=== PATIENT | male | born 1950 | race Caucasian/White ===

== ENCOUNTER → 2019-08-22 | Outpatient (CLI) | payer MEDICARE, OTHER ==
--- NOTE | 2019-08-22 14:11 | RADIOLOGY REPORT (SQ) ---
EXAM DESCRIPTION: U/S RETROPERITON (RENAL/AORTA) IMAGES COMPLETED DATE/TIME: 08/22/2019 1:53 pm REASON FOR STUDY: N18.3 CHRONIC KIDNEY DISEASE, STAGE 3 (MODERATE) N18.3 CHRONIC KIDNEY DISEASE, ST AGE 3 (MODERATE) COMPARISON: None. TECHNIQUE: Dynamic and static grayscale images acquired of the kidneys and bladder and recorded on P ACS. Additional selected color Doppler and spectral images recorded. LIMITATIONS: None. FINDINGS: RIGHT KIDNEY: The right kidney measures 10.4 x 4.7 x 4.3 cm, normal size. Normal echogeni city. Mild dilatation of the right renal pelvis. A 2.7 x 1.8 x 3.1 cm cyst in the lower pole of the kidney. Normal echogenicity. No calcifications. LEFT KIDNEY: The left kidney measures 10.2 x 4.2 x 5.2 cm, normal size. Normal echogenicity. No ruth d or suspicious masses. No hydronephrosis. No calcifications. BLADDER: The prostate gland is enlarged and measures 5.8 x 4.1 x 4.8 cm. There is not indentation o n the base of the urinary bladder by the enlarged prostate gland. OTHER FINDINGS: Incidentally, fatty liver. IMPRESSION: 1. Mild dilatation of the right renal pelvis. 2. Right renal cyst. 3. The prostate gland is enlarged. There is indentation on the base of the urinary bladder. 4. Incidentally, fatty liver. TECHNICAL DOCUMENTATION: JOB ID: [id number] 2010 [employer]- All Rights Reserved Reading location - IP/workstation name: [email or web address]
== END ==
LOC: RAD 12:09
PROVIDERS: ATTEND Internal Medicine Nephrology
DX: I12.9 Hypertensive chronic kidney disease with stage 1 through stage 4 chronic kidney disease, or unspecified chronic kidney disease (principal); N18.3 Chronic kidney disease, stage 3 (moderate); N28.1 Cyst of kidney, acquired; N40.0 Benign prostatic hyperplasia without lower urinary tract symptoms; K76.0 Fatty (change of) liver, not elsewhere classified
CPT/HCPCS: 76770

== ENCOUNTER → 2019-09-02 | Outpatient (CLI) | payer MEDICARE, OTHER ==
--- NOTE | 2019-09-02 14:48 | RADIOLOGY REPORT (SQ) ---
EXAM DESCRIPTION: CT ABDOMEN NO ORAL OR IV IMAGES COMPLETED DATE/TIME: 09/02/2019 1:22 pm REASON FOR STUDY: R93.421 ABNORMAL RADIOLOGIC FINDINGS ON DX IMAGING OF R KIDNEY R93.421 ABNORMAL R ADIOLOGIC FINDINGS ON DX IMAGING OF R KIDN COMPARISON: Ultrasound from 08/22/2019 TECHNIQUE: CT scan of the abdomen performed without intravenous contrast and without oral contrast. Images reviewed with lung, soft tissue, and bone windows. Reconstructed coronal and sagittal MPR im ages reviewed. All images stored on PACS. All CT scanners at this facility use dose modulation, iterative reconstruction, and/or weight based d osing when appropriate to reduce radiation dose to as low as reasonably achievable (ALARA). [facility]: Dose Right [facility]: CareDose [facility]: Dose Right [facility]: Teradose 4D [facility]: [employer] RADIATION DOSE: CT Rad equipment meets quality standard of care and radiation dose reduction techniq ues were employed. CTDIvol: 13.9 mGy. DLP: 430 mGy-cm. LIMITATIONS: None. FINDINGS: LOWER CHEST: Solid 5 mm nodule in the right lower lobe (image 6 of series 4). There is no cardiomegaly or pericardial effusion NONCONTRASTED LIVER, SPLEEN, ADRENALS: Evaluation is limited due to the absence of intravenous contra st. The diffuse low attenuation of hepatic parenchyma is consistent with hepatic steatosis. The spl een measures 11.4 cm in craniocaudal diameter. There is no adrenal mass. PANCREAS: No acute gross abnormality of the pancreas. GALLBLADDER: The gallbladder is surgically absent. RIGHT KIDNEY AND URETER: Evaluation is limited due to the absence of intravenous contrast there is a simple fluid attenuation cyst in the lower pole of the kidney that measures 2.5 x 2.6 cm. There is n o hydronephrosis or nephrolithiasis. LEFT KIDNEY AND URETER: Evaluation is limited due to the absence of intravenous contrast. There is n o hydronephrosis or nephrolithiasis AORTA AND RETROPERITONEUM: No aneurysm of the abdominal aorta. No retroperitoneal adenopathy, hemorr jase or mass. BOWEL AND PERITONEAL CAVITY: Hiatal hernia. APPENDIX: Excluded from the [id number]. ABDOMINAL WALL: No mass or hernia. BONES: No acute fracture. OTHER: No other finding. IMPRESSION: 1. Hepatic steatosis. 2. Solid 5 mm nodule in the right lower lobe (image 4 of series 4). If no outside imaging is availab le for comparison consider a follow-up CT in 12 months. 3. No hydronephrosis or nephrolithiasis. 4. Hiatal hernia. TECHNICAL DOCUMENTATION: JOB ID: [id number] Quality ID # [id number]: Final reports with documentation of one or more dose reduction techniques (e.g., Au tomated exposure control, adjustment of the mA and/or kV according to patient size, use of iterative reconstruction technique) 2010 [employer]- All Rights Reserved Reading location - IP/workstation name: [email or web address]
== END ==
LOC: RAD 13:04
PROVIDERS: ATTEND Internal Medicine Nephrology
DX: R93.421 Abnormal radiologic findings on diagnostic imaging of right kidney (principal); K44.9 Diaphragmatic hernia without obstruction or gangrene; R91.1 Solitary pulmonary nodule
CPT/HCPCS: 74150

== ENCOUNTER → 2019-11-02 | Outpatient (CLI) | payer MEDICARE, OTHER ==
--- NOTE | 2019-11-02 10:09 | RADIOLOGY REPORT (SQ) ---
EXAM DESCRIPTION: CT CHEST WITHOUT IMAGES COMPLETED DATE/TIME: 11/02/2019 7:59 am REASON FOR STUDY: SOLITARY PULMONARY NODULE (R91.1) R91.1 SOLITARY PULMONARY NODULE COMPARISON: None. TECHNIQUE: CT scan performed of the chest without intravenous contrast. Images reviewed with lung, soft tissue and bone windows. Reconstructed coronal and sagittal MPR images reviewed. All images st ored on PACS. All CT scanners at this facility use dose modulation, iterative reconstruction, and/or weight based d osing when appropriate to reduce radiation dose to as low as reasonably achievable (ALARA). [facility]: Dose Right [facility]: CareDose [facility]: Dose Right [facility]: Teradose 4D [facility]: [employer] RADIATION DOSE: CT Rad equipment meets quality standard of care and radiation dose reduction techniq ues were employed. CTDIvol: 15.4 mGy. DLP: 606 mGy-cm. mGy. LIMITATIONS: No technical limitations. FINDINGS: LUNGS AND PLEURA: Within the right lower lobe there is a 5 x 4 x 4 mm subpleural pulmonary nodule (axial image 82; coronal reformat 98). Calcified granulomas are seen within the superior seg ment of the bilateral lower lobes. Incidental note is made of few scattered 2 to 3 mm subpleural pul monary nodules. The lungs are otherwise clear and evenly aerated without significant interstitial di sease demonstrated. No pleural effusion. No pneumothorax. HILAR AND MEDIASTINAL STRUCTURES: No identified masses or abnormal nodes. No obvious aneurysm. Inci dental note is made of a small hiatal hernia. HEART AND VASCULAR STRUCTURES: No aneurysm. No pericardial effusion. UPPER ABDOMEN: Limited exam. Heterogeneous attenuation of the liver may be on the basis of geographi c fatty infiltration. Status post cholecystectomy. No acute findings. THYROID AND OTHER SOFT TISSUES: No masses. No adenopathy. BONES: No significant finding. HARDWARE: None in the chest. OTHER: No other significant findings. IMPRESSION: 5 x 4 x 4 mm solid pulmonary nodule within the right lower lobe. Recommend risk stratif ication and follow-up imaging in accordance with current Fleischner society guidelines. Other chroni c and incidental findings as detailed above. COMMENT: FLEISCHNER CRITERIA FOR FOLLOW-UP OF PULMONARY NODULES Incidentally detected new nodules in persons 35 or older. HIGH RISK: History of smoking or other known risk factors. <6 mm single solid nodule: LOW RISK: no routine followup. HIGH RISK: optional CT 12 mo. TECHNICAL DOCUMENTATION: JOB ID: [id number] Quality ID # [id number]: Final reports with documentation of one or more dose reduction techniques (e.g., Au tomated exposure control, adjustment of the mA and/or kV according to patient size, use of iterative reconstruction technique) 2010 [employer]- All Rights Reserved Reading location - IP/workstation name: [email or web address]
== END ==
LOC: RAD 07:41
PROVIDERS: ATTEND Internal Medicine Critical Care Medicine
DX: R91.1 Solitary pulmonary nodule (principal)
CPT/HCPCS: 71250